=== PATIENT | female | born 1950 | race Caucasian/White ===

== ENCOUNTER 2017-09-10 14:06 | Emergency (ER) | payer OTHER ==
[~2017-09-10] VITALS: Ht 157.5 cm; Wt 90.7 kg
[2017-09-10] MEDS ORDERED: LOPRESSOR25 MG (14:57)
[2017-09-10] MEDS ORDERED: VITAMIN D400 UNI2 (14:58)
== END 2017-09-10 17:06 | disposition home or self-care (01) ==
LOC: ER 14:06
DX: L02.416 Cutaneous abscess of left lower limb (principal); B95.61 Methicillin susceptible Staphylococcus aureus infection as the cause of diseases classified elsewhere